=== PATIENT | male | born 1955 | race Caucasian/White ===

== ENCOUNTER 2016-09-29 14:31 | Emergency (ER) | payer OTHER ==
[~2016-09-29] VITALS: Ht 172.7 cm; Wt 108.9 kg
[2016-09-29 14:50] VITALS: BP 150/84
--- NOTE | 2016-09-29 15:05 | PHYS DOC ---
Past Medical History Past Medical History: High Cholesterol, Hypertension Past Surgical History: Appendectomy, Cholecystectomy, Colectomy, Tonsillectomy Additional Past Surgical Histo: Hernia Alcohol Use: None Drug Use: None Adult General Chief Complaint Chief Complaint: UPPER EXTREMITY INJURY HPI HPI Patient is a 61 year old male presents to the emergency department with complaints of right shoulder pain. He states that earlier today he was leaning on a table to begin the slide this caused him to slip forward with his arm fixed , causing a hyperextension to the shoulder. Patient has no loss of function or range of motion. He is here seeking further evaluation. Review of Systems Review of Systems Constitutional: Denies fever or chills [] Eyes: Denies change in visual acuity, redness, or eye pain [] HENT: Denies nasal congestion or sore throat [] Respiratory: Denies cough or shortness of breath [] Cardiovascular: No additional information not addressed in HPI [] GI: Denies abdominal pain, nausea, vomiting, bloody stools or diarrhea [] : Denies dysuria or hematuria [] Musculoskeletal: Right upper extremity exam, right shoulder exam no swelling no ecchymosis. Full range of motion, with increasing pain at abduction greater than 90. His neurovascular is intact distally. Right elbow exam unremarkable. No tenderness to palpate over the right clavicle however he does have mild tenderness to palpate over the right trapezius. Integument: Denies rash or skin lesions [] Neurologic: Denies headache, focal weakness or sensory changes [] Endocrine: Denies polyuria or polydipsia [] Allergies Allergies Allergies Coded Allergies Type Severity Reaction Last Updated Verified codeine Allergy Intermediate 09/29/16 Yes Physical Exam Physical Exam Constitutional: Well developed, well nourished, no acute distress, non-toxic appearance. [] HENT: Normocephalic, atraumatic, bilateral external ears normal, oropharynx moist, no oral exudates, nose normal. [] Eyes: PERRLA, EOMI, conjunctiva normal, no discharge. [] Neck: Normal range of motion, no tenderness, supple, no stridor. [] Cardiovascular:Heart rate regular rhythm, no murmur [] Lungs & Thorax: Bilateral breath sounds clear to auscultation [] Abdomen: Bowel sounds normal, soft, no tenderness, no masses, no pulsatile masses. [] Skin: Warm, dry, no erythema, no rash. [] Back: No tenderness, no CVA tenderness. [] Extremities: No tenderness, no cyanosis, no clubbing, ROM intact, no edema. [] Neurologic: Alert and oriented X 3, normal motor function, normal sensory function, no focal deficits noted. [] Psychologic: Affect normal, judgement normal, mood normal. [] Current Patient Data Vital Signs Vital Signs Date Time Temp Pulse Resp B/P (MAP) Pulse Ox O2 Delivery O2 Flow Rate FiO2 09/29/16 14:50 98.6 96 16 97 Room Air 98.6 EKG EKG [] Radiology/Procedures Radiology/Procedures Right shoulder x-ray reviewed and interpreted by me, no acute changes. [] Course & Med Decision Making Course & Med Decision Making Pertinent Labs and Imaging studies reviewed. (See chart for details) [] Dragon Disclaimer Dragon Disclaimer This electronic medical record was generated, in whole or in part, using a voice recognition dictation system. Departure Departure Impression: Primary Impression: Shoulder strain Disposition: HOME, SELF-CARE Condition: STABLE Patient Instructions: Arm Sling Use-Brief, Shoulder Pain Additional Instructions: Ice to the affected area. Follow-up with workman's comp on Saturday. Scripts Naproxen (NAPROSYN) 500 Mg Tablet 500 MG PO BID Y for PAIN, #20 TAB Prov: RENARD DE JESUS APRN 09/29/16 Problem Qualifiers Primary Impression: Shoulder strain Encounter type: initial encounter Laterality: right Qualified Codes: S46.911A - Strain of unspecified muscle, fascia and tendon at shoulder and upper arm level, right arm, initial encounter RENARD DE JESUS APRN Sep 29, 2016 15:05
--- NOTE | 2016-09-29 15:30 | RAD ---
Indication pain associated with a fall. Internally and externally rotated views of the right shoulder as well as a Y view were obtained. IMPRESSION: No acute or significant bony finding is seen. Minimal degenerative changes noted at the AC joint
[2016-09-29] MEDS ORDERED: NAPR500T PO (15:32)
== END 2016-09-29 15:42 | disposition home or self-care (01) ==
LOC: ER 14:31
DX: S46.911A Strain of unspecified muscle, fascia and tendon at shoulder and upper arm level, right arm, initial encounter (principal); I10 Essential (primary) hypertension; E78.00 Pure hypercholesterolemia, unspecified; Z90.49 Acquired absence of other specified parts of digestive tract; Z88.6 Allergy status to analgesic agent; X58.XXXA Exposure to other specified factors, initial encounter; Y93.89 Activity, other specified; Y92.89 Other specified places as the place of occurrence of the external cause; Y99.8 Other external cause status
CPT/HCPCS: 73030; 99284-25